=== PATIENT | male | born 1955 | race Caucasian/White ===

== ENCOUNTER 2017-03-25 21:12 | Emergency (ER) | payer BC ==
[~2017-03-25 21:12] MED LIST: AMOXICILLIN875 MG PO; ANTIVERT 25MG T25 MG PO; ASPIRIN EC81 MG PO; LISINOPRIL-HCT1 EAC1 PO; SYNTHROID88 MCG PO; VITAMIN B-1100 M1 PO
[2017-03-26 00:42] LABS: HEMOGLOBIN 14.7 gm/dl (14.0-17.5); RED BLOOD COUNT 4.43 M/UL (4.20-5.50); WHITE BLOOD COUNT 9.2 K/UL (4.5-11.0)
[2017-03-26 01:06] LABS: BUN/CREATININE RATIO 23 (0-10)
== END 2017-03-26 02:25 | disposition home or self-care (01) ==
LOC: ER1 21:12
PROVIDERS: Emergency Medicine
DX: B34.9 Viral infection, unspecified (principal); Z79.899 Other long term (current) drug therapy
CPT/HCPCS: 36415; 71020; 80053; 81001; 82550; 82553; 83605; 83690; 83874; 84484; 85025; 85610; 85730; 87086; 93005; 96360; 99284; J7030

== ENCOUNTER 2020-12-24 14:14 | Emergency (ER) | payer BC ==
[2020-12-24 14:59] LABS: HEMOGLOBIN 18.6 gm/dl (14.0-17.5); RED BLOOD COUNT 5.37 M/UL (4.20-5.50); WHITE BLOOD COUNT 3.3 K/UL (4.5-11.0)
[2020-12-24 15:41] LABS: BUN/CREATININE RATIO 22 (0-10)
[2020-12-24] MEDS ORDERED: ZITHROMAX250 MG PO (16:51)
[2020-12-24] MEDS ORDERED: MEDROL DOSEPAK 24 MG PO (16:51)
[2020-12-24] MEDS ORDERED: ATROVENT-HFA12.9 GM INH (16:51)
[2020-12-24] MEDS ORDERED: OMNICEF 300 MG300 MG PO (16:51)
== END 2020-12-24 16:56 | disposition home or self-care (01) ==
LOC: ER1 14:14
PROVIDERS: Physician Assistant Medical
DX: U07.1 COVID-19 (principal); I10 Essential (primary) hypertension; E03.9 Hypothyroidism, unspecified
CPT/HCPCS: 0240U; 71045; 80053; 83605; 85025; 87040; 96365; 99283; J0696

== ENCOUNTER → 2021-01-17 | Outpatient (CLI) | payer BC ==
[~2021-01-17] MED LIST changes: +ATROVENT-HFA12.9 GM INH; +MEDROL DOSEPAK 24 MG PO; +OMNICEF 300 MG300 MG PO; +TESSALON PERLE100 MG PO; +VENTOLIN HFA 66.7 GM INH; +ZITHROMAX250 MG PO
== END ==
LOC: KOH-I 12:09
DX: R05 Cough (principal); R91.8 Other nonspecific abnormal finding of lung field
CPT/HCPCS: 71046

== ENCOUNTER 2021-01-20 19:23 | Emergency (ER) | payer MEDICARE ==
[~2021-01-20 19:23] MED LIST changes: -TESSALON PERLE100 MG PO; -VENTOLIN HFA 66.7 GM INH
[2021-01-20 20:24] LABS: HEMOGLOBIN 17.1 gm/dl (14.0-17.5); RED BLOOD COUNT 4.99 M/UL (4.20-5.50); WHITE BLOOD COUNT 7.3 K/UL (4.5-11.0)
[2021-01-20 21:23] LABS: BUN/CREATININE RATIO 19 (0-10)
[2021-01-21] MEDS ORDERED: TESSALON PERLE100 MG PO (03:15)
[2021-01-21] MEDS ORDERED: VENTOLIN HFA 66.7 GM INH (03:15)
[2021-01-21] MEDS ORDERED: OMNICEF 300 MG300 MG PO (03:15)
== END 2021-01-21 04:00 | disposition home or self-care (01) ==
LOC: ER1 19:23
PROVIDERS: Emergency Medicine
DX: J18.9 Pneumonia, unspecified organism (principal); I10 Essential (primary) hypertension; Z86.16 Personal history of COVID-19
CPT/HCPCS: 71045; 80053; 82550; 82553; 83605; 83735; 83874; 83880; 84484; 85025; 85379; 93005; 96365; 99285; J0696; J7030; J7040

== ENCOUNTER → 2021-02-06 | Outpatient (CLI) | payer MEDICARE, BC ==
[~2021-02-06] MED LIST changes: +TESSALON PERLE100 MG PO; +VENTOLIN HFA 66.7 GM INH
== END ==
LOC: KOH-I 13:15
DX: J18.9 Pneumonia, unspecified organism (principal); R05 Cough
CPT/HCPCS: 71046

== ENCOUNTER → 2021-05-17 | Outpatient (CLI) | payer BC, MEDICARE | LOC: HEART 5 10:19 | DX: R06.02 Shortness of breath (principal) | CPT/HCPCS: 94010 ==

== ENCOUNTER 2022-06-23 15:16 | Emergency (ER) | payer BC, MEDICARE ==
[2022-06-23] MEDS ORDERED: MEDROL DOSEPAK 24 MG PO (17:47)
[2022-06-23] MEDS ORDERED: FLONASE 0.05% N16 GM (17:47)
[2022-06-23] MEDS ORDERED: DELSYM30 MG/5 ML PO (17:47)
== END 2022-06-23 18:00 | disposition home or self-care (01) ==
LOC: ER1 15:16
DX: J06.9 Acute upper respiratory infection, unspecified (principal); Z79.899 Other long term (current) drug therapy; Z20.822 Contact with and (suspected) exposure to COVID-19
CPT/HCPCS: 99283; U0002